=== PATIENT | female | born 1990 | race Caucasian/White ===

== ENCOUNTER 2017-01-27 23:30 | Inpatient (IN) ==
[2017-01-27] MEDS ORDERED: ONDANSETRON 4 MG/2 ML VIAL IV PRN (23:44)
[2017-01-27] MEDS ORDERED: ACETAMINOPHEN 325 MG TABLET PO PRN (23:44)
[2017-01-27] MEDS ORDERED: MEPERIDINE 50 MG/1 ML VIAL IV PRN (23:44)
[2017-01-27] MEDS ORDERED: CITRIC ACID/SODIUM CITRATE 30 ML UDCUP PO ONE (23:46)
[2017-01-27] MEDS ORDERED: FAMOTIDINE 20 MG/2 ML VIAL IV ONE (23:46)
[2017-01-27] MEDS: LACTATED RINGERS 1,000 ML IV SCH (23:55)
[2017-01-28] MEDS ORDERED: fentaNYL 2 MCG/ROPIV 0.2% EPID 150 ML EPIDURAL ONE (00:04)
[2017-01-28 00:15] LABS: Basophils # 0.1 10*3/uL (0.0-0.2); Basophils % 0.3 % (0.0-0.8); Eosinophils # 0.3 10*3/uL (0.0-0.87); Eosinophils % 1.4 % (0.00-10.9); Hematocrit 30.4 VOL% (35.7-47.0); Hemoglobin 9.7 GM/DL (12.0-16.0); Immature Granulocytes % 1.4 %; Immature Granulocytes Absolute 0.26 #; Lymphocytes # 2.6 10*3/uL (1.4-4.0); Mean Corpuscular HGB Conc 31.9 GM/DL (32-36); Mean Corpuscular Hemoglobin 25 PG (27-34); Mean Corpuscular Volume 78.4 FL (87-102); Mean Platelet Volume 13.4 FL (9.6-12.0); Monocytes # 1.1 10*3/uL (0.11-0.8); Neutrophils # 14.1 10*3/uL (1.4-7.4); Neutrophils % 76.9 % (38.7-73.9); Platelet Count 196 T/CUMM (130-400); Red Blood Count 3.88 MC/CUMM (3.8-5.5); Red Cell Distribution Width 16.1 % (9.3-17.3); White Blood Count 18.4 T/CUMM (4-12)
[2017-01-28] MEDS ORDERED: fentaNYL 2 MCG/ROPIV 0.2% EPID 150 ML EPIDURAL SCH (00:23)
[2017-01-28] MEDS: LACTATED RINGERS 1,000 ML IV SCH ×3 (00:29→07:45)
[2017-01-28 00:42] LABS: Alanine Aminotransferase 15 U/L (13-56); Albumin 2.5 G/DL (3.4-5.0); Alkaline Phosphatase 221 U/L (45-117); Aspartate Amino Transferase 23 U/L (0-37); Bilirubin,Total < 0.39 MG/DL (0.2-1.0); Blood Urea Nitrogen 10 MG/DL (7-18); Calcium 8.7 MG/DL (8.5-10.1); Glucose 73 MG/DL (74-106); Osmolality,Calculated 270.8 MOS/KG (273-304); Potassium 4.1 MMOL/L (3.5-5.1); Sodium 137 MMOL/L (136-145); Total Protein 6.3 G/DL (6.4-8.3)
[2017-01-28] MEDS: ePHEDrine 50 MG/ML AMP IV PRN ×2 (01:07→01:09)
[2017-01-28 01:54] LABS: Apearance,Urine CLEAR (Clear); Bilirubin,Urine Negative (Negative); Blood, Urine Negative (Negative); Glucose,Urine (UA) Negative (Negative); Ketones,Urine Negative (Negative); Nitrite,Urine Negative (Negative); Protein,Urine Negative; Urine Color Straw (Yellow); Urine Specific Gravity 1.004 (1.001-1.035); Urine Urobilinogen < 2.0 EU/DL (0.2-1.0)
[2017-01-28 02:25] LABS: Barbiturates Screen,Urine Negative (Negative); Benzodiazepines Screen,Urine Negative (Negative); Cannabinoid Screen,Urine Negative (Negative); Opiate Screen,Urine Negative (Negative); Phencyclidine Screen,Urine Negative (Negative)
[2017-01-28] MEDS ORDERED: OXYTOCIN/LR 20 UNIT/1,000 ML BAG IV SCH (06:00)
--- NOTE | 2017-01-28 09:08 | OB/GYN History & Physical ---
History of Present Illness Chief complaint: In active labor. History of present illness: Ms. Gonsalez is a 26 year old female 5 para 3 AB 1 living 3. Her FALLON is for an estimated gestational age of 38 and 6 7 weeks. The patient presents to the labor department in active labor. The risk and benefits has been thoroughly discussed with this patient and significant other, plan of care has been discussed with Dr. Antonio and all parties are in agreement with plan. The patient began her care late in her third trimester at the [place] [facility]. Her course was uneventful. She has had 3 previous vaginal deliveries and the largest infant weighing 8 pounds and 9 ounces. She reported no complications with any of those pregnancies. labs: She is a positive, rubella is immune, RPR is nonreactive, hepatitis B negative, HIV negative, GBS culture negative. Review of systems is negative with the exception of above. Home Medications Medication Instructions Recorded Confirmed Type Pedi Mv No.79/Ferrous Fumarate 1 tablet PO DAILY 11/04/15 01/27/17 History [Flintstones w/Iron Chew Tab] Allergies Allergy/AdvReac Type Severity Reaction Status Date / Time Penicillins AdvReac Intermediate RASH Verified 01/22/17 14:22 12 point system: reviewed and no additional remarkable complaints except as stated Medical,Surgical,& Family Hx - Medical History Medical History: noncontributory Musculoskeletal: No history of: Amputation Reproductive: History of: Sexually Transmitted Disorders (Chlamydia) No history of: Ectopic , Complication - Surgical History Surgical History: noncontributory Reproductive Surgeries: Patient denies;: Section - Family History Family History: Reports;: Family Diabetes (PGF), Family Hypertension (MGM), Additional Family History (mgm-deaf) Denies;: Family Anesthesia Reaction, Family Cancer, Family Heart Disease, Family Psychiatric Problems, Family Stroke - Social History Smoking Status: Current every day smoker Have you smoked in the last 12 months: Yes Frequency of Alcohol Use: None Type of Drug Use: None Marital Status: Single Lives With:: Significant Other Functional capacity: 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 ambulation 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 - Constitutional Vitals: Vital Signs Temp Pulse Resp BP 01/28/17 04:00 97.3 F L 76 18 115/64 01/28/17 01:00 97.6 F General appearance: mild distress - Antepartum / Post Antepartum Exam Cervix - Dilatation: 6 cm on admission Effacement: 70% Station: -2 Rupture: Intact Presentation: Vertex Heart Rate: 140 Breast: bilateral: normal Abdomen obstetrics: Present: bowel sounds normal Vagina: Present: normal moisture Uterus exam: Present: enlarged Anus/Rectum: Present: normal perianal skin - Respiratory Respiratory exam: Present: clear to auscultation bilaterally - Cardiovascular Cardiovascular exam: Present: regular rate and rhythm - GI/Abdominal GI/Abdominal exam: Present: normal bowel sounds, soft - Extremities Exam Extremities exam: Present: normal inspection - Neurological Exam Neurological exam: Present: alert, oriented X3 - Psychiatric Psychiatric exam: Present: normal affect, normal mood - Skin Skin exam: Present: normal color, warm Assessment and Plan (1) Active labor at term Status: Acute Assessment and plan: Admit IV fluids IV Pitocin per protocol if indicated Artificial rupture membranes if appropriate Epidural anesthesia if desired Anticipate Current Visit: Yes Results - Labs CBC & BMP: 01/27/17 23:57 01/27/17 23:57
[2017-01-28] MEDS ORDERED: IBUPROFEN 800 MG TABLET PO PRN (11:40)
--- NOTE | 2017-01-28 12:19 | Anesthesia Post-Op ---
Anesthesia Post OP - Post Ansesthetic Evaluation Patient seen in post op: Yes Resp: within normal limits CV: within normal limits Mental: within normal limits Temp: within normal limits [id number]: within normal limits Nausea and Vomiting: within normal limits Pain: within normal limits
[2017-01-28] MEDS ORDERED: ACETAMINOPHEN/CODEINE 300-30 MG TABLET PO PRN (16:08)
[2017-01-28] MEDS ORDERED: MEASLES/MUMPS/RUBELLA VACCINE 0.5 ML VIAL SUBCUT ONE (16:16)
[2017-01-28] MEDS ORDERED: BENZOCAINE 20%/MENTHOL 0.5% SPRAY 56 GM CAN TOP PRN (16:16)
[2017-01-28] MEDS ORDERED: RHO(D) IMMUNE GLOBULIN 300 MCG SYRINGE IM ONE (16:16)
[2017-01-28] MEDS ORDERED: LANOLIN 50% CREAM 0.3 OZ TUBE TOP PRN (16:16)
[2017-01-28] MEDS ORDERED: HYDROCORTISONE 2.5% RECTAL CREAM 30 GM TUBE TOP PRN (16:16)
[2017-01-28] MEDS ORDERED: WITCH HAZEL PADS 100/JAR TOP PRN (16:16)
[2017-01-28] MEDS ORDERED: ONDANSETRON 4 MG/2 ML VIAL IV PRN (16:16)
[2017-01-28] MEDS ORDERED: BISACODYL 10 MG SUPP RECTAL PRN (16:16)
[2017-01-28] MEDS ORDERED: DIPH/TET/ACEL PERT BOOSTER VACCINE 0.5 ML VIAL IM ONE (16:16)
--- NOTE | 2017-01-28 16:36 | Event Note ---
HPI: Ms. Gonsalez presented to the labor department in active labor. The risk and benefits were thoroughly discussed with the patient and significant other, plan of care discussed with Dr. Antonio and all parties were in agreement plan. STAGE I: The patient was admitted she received IV fluids and IV Pitocin per protocol. She also had spontaneous rupture membranes with clear fluid noted. She progressed in labor with a CAT 1 tracing. She did receive an epidural for pain control. She had an uneventful course of labor. STAGE 2: The patient was complete and complaining of pressure and desire to push. She pushed for approximately 10 minutes after which time the infant's head was delivered. The mouth and nose was suctioned on the perineum. The remainder of the infant was delivered at 0933. A viable female was noted with a terminal meconium stool. weight was 7 pounds and 14 oz. Apgars were 7 at 1 min and 8 at 5 min. STAGE 3: A spontaneous delivery of a [place]bin placenta with a three-vessel cord noted. Placenta was further examined appeared to be grossly with calcifications noted. The placenta was sent to pathology due to late care of the mother and history of drug use. The vagina and cervix was inspected with no tears or lacerations noted. Estimated blood loss was approximately 100 cc. At the time of dictation mother and baby are both in stable condition.
[2017-01-28] MEDS: oxyCODONE/ACETAMINOPHEN 5-325 MG TABLET PO PRN (18:19)
[2017-01-28] MEDS ORDERED: DOCUSATE SODIUM 100 MG CAPSULE PO SCH (21:00)
[2017-01-28] MEDS ORDERED: FERROUS SULFATE 325 MG TABLET PO SCH (21:00)
[2017-01-28] MEDS: IBUPROFEN 800 MG TABLET PO PRN (23:40)
[2017-01-28] MEDS ORDERED: MAGNESIUM HYDROXIDE SUSP 30 ML UDCUP PO PRN (23:44)
[2017-01-29] MEDS: oxyCODONE/ACETAMINOPHEN 5-325 MG TABLET PO PRN ×3 (03:50→23:18)
[2017-01-29 05:42] LABS: Basophils # 0.1 10*3/uL (0.0-0.2); Basophils % 0.4 % (0.0-0.8); Eosinophils # 0.4 10*3/uL (0.0-0.87); Eosinophils % 2.7 % (0.00-10.9); Hematocrit 28.4 VOL% (35.7-47.0); Hemoglobin 8.7 GM/DL (12.0-16.0); Immature Granulocytes Absolute 0.31 #; Lymphocytes # 3.3 10*3/uL (1.4-4.0); Lymphocytes % 21.5 % (21.3-54.2); Mean Corpuscular HGB Conc 30.6 GM/DL (32-36); Mean Corpuscular Hemoglobin 25 PG (27-34); Mean Platelet Volume 13.1 FL (9.6-12.0); Monocytes # 0.9 10*3/uL (0.11-0.8); Monocytes % 6.1 % (1.7-12.7); Neutrophils # 10.3 10*3/uL (1.4-7.4); Neutrophils % 67.3 % (38.7-73.9); Platelet Count 153 T/CUMM (130-400); Red Blood Count 3.55 MC/CUMM (3.8-5.5); Red Cell Distribution Width 16.2 % (9.3-17.3); White Blood Count 15.4 T/CUMM (4-12)
[2017-01-29] MEDS: DOCUSATE SODIUM 100 MG CAPSULE PO SCH ×2 (08:10→21:04)
[2017-01-29] MEDS: FERROUS SULFATE 325 MG TABLET PO SCH ×2 (08:10→21:04)
--- NOTE | 2017-01-29 09:37 | OB/GYN Progress Note ---
Assessment and Plan (1) Active labor at term Status: Acute Assessment and plan: Admit IV fluids IV Pitocin per protocol if indicated Artificial rupture membranes if appropriate Epidural anesthesia if desired Anticipate Current Visit: Yes (2) Vaginal delivery Status: Acute Assessment and plan: Initiate routine orders. 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 Bonding well with . 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 Vitals: Vital Signs Temp Pulse Resp BP Pulse Ox 01/29/17 07:16 97.6 F 80 20 113/61 97 01/29/17 05:00 17 01/29/17 04:00 97.1 F L 94 H 19 128/83 99 01/29/17 00:00 97.1 F L 73 18 128/73 99 01/28/17 20:00 98.3 F 86 19 125/73 97 01/28/17 15:43 97.5 F L 98 H 20 126/75 98 01/28/17 14:15 100 H 18 133/67 99 01/28/17 13:15 109 H 18 133/67 98 01/28/17 12:15 96 H 18 131/90 99 01/28/17 11:45 78 18 132/81 98 01/28/17 11:15 97.4 F L 84 18 111/70 98 General appearance: no acute distress - Antepartum / Post Post Exam Breast: bilateral: normal Abdomen obstetrics: Present: bowel sounds normal Vagina: Present: normal moisture, discharge (Light lochia rubra) Uterus exam: Present: enlarged (Fundus firm and midline) Anus/Rectum: Present: normal perianal skin - Respiratory Respiratory exam: Present: clear to auscultation bilaterally - Cardiovascular Cardiovascular exam: Present: regular rate and rhythm - GI/Abdominal GI/Abdominal exam: Present: normal bowel sounds, soft - Extremities Exam Extremities exam: Present: normal inspection - Neurological Exam Neurological exam: Present: alert, oriented X3 - Psychiatric Psychiatric exam: Present: normal affect, normal mood - Skin Skin exam: Present: normal color, warm Results - Labs CBC & BMP: 01/29/17 05:31 01/27/17 23:57
--- NOTE | 2017-01-29 11:21 | Pathology Report from [facility] ---
[facility] ACCESSION # : [id number] PATIENT NAME : Margarito Gonsalez I ORDERING DR : RAUL COOK MD CLINICAL HX: IUP @ 38.5 wks, late care @ 36 wks, HX of drug use POST-OP DX: Same SPECIMEN INFO: Placenta GROSS DESCRIPTION: Received fresh labeled DUNG GONSALEZ is a 792 gm placenta measuring 22.5 x 19.5 x 2.2 cm. The membranes are pink faust and translucent. The umbilical cord measures 41.0 cm, contains three vessels and is centrally inserted. The surface is blue monterroso and intact. The maternal surface is moderately disrupted. No abnormalities are appreciated upon sectioning. Sections submitted A- membranes and cord, B- and maternal surfaces. DIAGNOSIS FOR MARGARITO GONSALEZ: PLACENTA, MEMBRANES, UMBILICAL CORD: Focal placental infarction, mild intervillous blood. Tri-vessel umbilical cord. Membranes with acute chorioamnionitis. COLLECTED DATE: 01/28/2017 [facility] REPORT DATE: 01/29/2017 ELECTRONICALLY SIGNED BY: Ayleen Crump M.D. 01/29/2017 - 10:10:51 KE
[2017-01-29] MEDS: IBUPROFEN 800 MG TABLET PO PRN (22:17)
[2017-01-30 07:44] VITALS: BP 140/89
[2017-01-30] MEDS: oxyCODONE/ACETAMINOPHEN 5-325 MG TABLET PO PRN (08:28)
[2017-01-30] MEDS: DOCUSATE SODIUM 100 MG CAPSULE PO SCH (08:29)
[2017-01-30] MEDS: FERROUS SULFATE 325 MG TABLET PO SCH (08:29)
--- NOTE | 2017-01-30 10:04 | Discharge Summary ---
Hospital Course - Hospital Course Hospital Course: Ms. Gonsalez presented to the labor department for elective induction of labor due to term . She subsequently delivered a viable with no complications. She is followed a normal course and she has done well. She is bonding well with her infant. Her bleeding is minimal with no odor. Her perineum is intact. Her vital signs and lab values are stable. Her bowel sounds are positive and she has had a normal bowel movement. Contraception options has been discussed with this patient and she desires a bilateral tubal ligation. The patient was scheduled for her tubal ligation in our office. She will be discharged home prescriptions for pain and a follow-up appointment in our office. Diagnosis - Discharge Diagnosis (1) Active labor at term Status: Acute (2) Vaginal delivery Status: Acute Specialty Discharge - Follow Up or Referrals Follow up with: Gaudencio Antonio MD [Physician] - 1 Month Discharge Plan - Discharge Data Disposition: Disch To Home/Self Care Condition at Discharge: Stable Discharge Diet: advance to your usual diet, regular diet Activity: resume usual activities as tolerated Hygiene: no restrictions Weight Bearing at Discharge: weight bear as tolerated Driving: no restrictions Contact your physician if you experience:: fever over 101, pain uncontrolled by pain medications - Discharge Medications New Acetamin/Codeine 300-30 Tab [Tylenol/Codeine #3] 2 tablet PO Q4H PRN #30 tablet PRN Reason: Pain Mild (1-3) Ferrous Sulfate Tab [Feosol Original Tab] 325 mg PO BID #60 tablet Ibuprofen Tab [Motrin Tab] 800 mg PO Q6H PRN #30 tablet PRN Reason: Pain Moderate (4-7) No Action Pedi Mv No.79/Ferrous Fumarate [Flintstones w/Iron Chew Tab] 1 tablet PO DAILY - Follow Up or Referral - Forms/Instructions Exam - Constitutional Vitals: Period Temp Pulse Resp BP Sys/[place] Pulse Ox Last 24 Hr 97 F-97.8 F 71-93 17-19 110-156/71-92 97-100 General appearance: no acute distress - Head Head exam: Present: normal inspection - Respiratory Respiratory exam: Present: clear to auscultation bilaterally - Cardiovascular Cardiovascular exam: Present: regular rate and rhythm - GI/Abdominal GI/Abdominal exam: Present: normal bowel sounds, soft - Extremities Exam Extremities exam: Present: normal inspection - Neurological Exam Neurological exam: Present: alert, oriented X3 - Psychiatric Psychiatric exam: Present: normal affect, normal mood - Skin Skin exam: Present: normal color, warm DS: Provider Date of admission: 01/28/17 00:40 Primary care physician: . No PCP Attending physician on admission: Gaudencio Antonio MD Consults: 01/27/17 23:44 Consult to Anesthesiology [CONS] Routine Consulting Provider: Reason for Anesthesiology: Epidural Consult Comment: Epidural for pain managment 01/28/17 16:16 Consult to Single Resource Boss [CONS] Routine Consult Single Resource Boss: Breast Feeding Discharging clinician: Jenna Aleman CNM Expected date of discharge: 01/30/17
== END 2017-01-30 11:00 | disposition home or self-care (01) | DRG 560 ==
LOC: N.LDOUT 23:30 → N.LD 23:31 → N.OB 01-28 11:27
PROVIDERS: ADMIT Obstetrics & Gynecology; ATTEND Obstetrics & Gynecology

== ENCOUNTER 2018-03-17 04:30 | Inpatient (IN) ==
[2018-03-17] MEDS ORDERED: OXYTOCIN/LR 20 UNIT/1,000 ML BAG IV ONE ×3 (04:43→05:32)
[2018-03-17] MEDS ORDERED: MEPERIDINE 50 MG/1 ML VIAL IV PRN (04:45)
[2018-03-17] MEDS ORDERED: ONDANSETRON 4 MG/2 ML VIAL IV PRN ×2 (04:45→05:32)
[2018-03-17] MEDS ORDERED: ONDANSETRON 4 MG/2 ML VIAL ONE (04:50)
[2018-03-17] MEDS ORDERED: MEPERIDINE 50 MG/1 ML VIAL ONE (04:50)
[2018-03-17] MEDS ORDERED: LACTATED RINGERS 1,000 ML IV SCH ×2 (05:00→06:00)
[2018-03-17] MEDS ORDERED: METHYLERGONOVINE 0.2 MG/1 ML AMP ONE (05:03)
[2018-03-17 05:07] LABS: Cord Arterial Blood HCO3 23.6 MMOL/L
[2018-03-17 05:08] LABS: Cord Venous Blood HCO3 25.7 MMOL/L; Cord Venous Blood PCO2 41.1 MMHG; Cord Venous Blood PO2 29.6 MMHG
[2018-03-17] MEDS ORDERED: OXYTOCIN/LR 30 UNIT/1,000 ML BAG IV ONE (05:30)
[2018-03-17] MEDS ORDERED: RHO(D) IMMUNE GLOBULIN 300 MCG SYRINGE IM ONE (05:32)
[2018-03-17] MEDS ORDERED: SIMETHICONE CHEW 80 MG TABLET PO PRN (05:32)
[2018-03-17] MEDS ORDERED: ACETAMINOPHEN 325 MG TABLET PO PRN (05:32)
[2018-03-17] MEDS ORDERED: MAGNESIUM HYDROXIDE SUSP 30 ML UDCUP PO PRN (05:32)
[2018-03-17 05:34] LABS: Basophils % 0.4 % (0.0-0.8); Eosinophils # 0.1 10*3/uL (0.0-0.87); Eosinophils % 0.6 % (0.00-10.9); Hematocrit 26.1 VOL% (35.7-47.0); Hemoglobin 7.8 GM/DL (12.0-16.0); Immature Granulocytes % 1.2 %; Immature Granulocytes Absolute 0.13 #; Lymphocytes # 1.7 10*3/uL (1.4-4.0); Lymphocytes % 15.2 % (21.3-54.2); Mean Corpuscular HGB Conc 29.9 GM/DL (32-36); Mean Corpuscular Hemoglobin 23 PG (27-34); Mean Corpuscular Volume 78.4 FL (87-102); Monocytes # 0.8 10*3/uL (0.11-0.8); Monocytes % 6.9 % (1.7-12.7); NRBC # 0.03 10*3/uL; Neutrophils # 8.5 10*3/uL (1.4-7.4); Neutrophils % 75.7 % (38.7-73.9); Platelet Count 175 T/CUMM (130-400); Red Blood Count 3.33 MC/CUMM (3.8-5.5); Red Cell Distribution Width 16.7 % (9.3-17.3); White Blood Count 11.2 T/CUMM (4-12)
[2018-03-17 05:35] LABS: Apearance,Urine CLEAR (Clear); Bacteria,Urine Occasional /HPF (Few); Bilirubin,Urine Negative (Negative); Blood, Urine Negative (Negative); Glucose,Urine (UA) Negative (Negative); Ketones,Urine Negative (Negative); Mucus,Urine Occasional /LPF (Occasional); Nitrite,Urine Negative (Negative); Protein,Urine Negative; RBC,Urine <1 /HPF (0-4); Squamous Epithelial Cell,Urine Occasional /HPF (0-10); Urine Color Yellow (Yellow); Urine Specific Gravity 1.008 (1.001-1.035); WBC,Urine 3 /HPF (0-6)
[2018-03-17 05:39] LABS: Barbiturates Screen,Urine Negative (Negative); Benzodiazepines Screen,Urine Negative (Negative); Cannabinoid Screen,Urine Negative (Negative); Opiate Screen,Urine Negative (Negative); Phencyclidine Screen,Urine Negative (Negative)
[2018-03-17] MEDS ORDERED: miSOPROStol 200 MCG TABLET ONE (05:48)
[2018-03-17 05:51] LABS: Alanine Aminotransferase 26 U/L (13-56); Alkaline Phosphatase 210 U/L (45-117); Aspartate Amino Transferase 31 U/L (0-37); Bilirubin,Total < 0.39 MG/DL (0.2-1.0); Blood Urea Nitrogen 9 MG/DL (7-18); Calcium 8.1 MG/DL (8.5-10.1); Glucose 82 MG/DL (74-106); Osmolality,Calculated 272.7 MOS/KG (273-304); Potassium 3.8 MMOL/L (3.5-5.1); Sodium 138 MMOL/L (136-145); Total Protein 5.8 G/DL (6.4-8.3)
[2018-03-17] MEDS ORDERED: miSOPROStol 200 MCG TABLET RECTAL ONE (06:30)
[2018-03-17 06:38] LABS: Hypochromasia 1+; Microcytosis Slight; Platelet Estimate Adequate
[2018-03-17] MEDS ORDERED: CARBOPROST TROMETHAMINE 250 MCG/ML AMP IM ONE (06:59)
[2018-03-17] MEDS ORDERED: SODIUM CHLORIDE 0.9% 1,000 ML IV PRN (07:03)
[2018-03-17] MEDS: CLINDAMYCIN INJ 900 MG in PREMIX 1 EACH IV SCH ×2 (07:31→15:02)
[2018-03-17] MEDS ORDERED: INFLUENZA VIRUS VACCINE 0.5 ML SYRINGE IM ONE (09:00)
[2018-03-17] MEDS: IBUPROFEN 800 MG TABLET PO PRN (09:14)
[2018-03-17] MEDS: DOCUSATE SODIUM 100 MG CAPSULE PO SCH ×2 (09:23→21:02)
[2018-03-17 13:53] LABS: Basophils % 0.2 % (0.0-0.8); Eosinophils % 0.1 % (0.00-10.9); Hematocrit 31.5 VOL% (35.7-47.0); Immature Granulocytes % 1.3 %; Immature Granulocytes Absolute 0.22 #; Lymphocytes # 1.2 10*3/uL (1.4-4.0); Lymphocytes % 7.3 % (21.3-54.2); Mean Corpuscular HGB Conc 31.7 GM/DL (32-36); Mean Corpuscular Hemoglobin 25 PG (27-34); Mean Corpuscular Volume 79.3 FL (87-102); Mean Platelet Volume 13.8 FL (9.6-12.0); Monocytes # 1.1 10*3/uL (0.11-0.8); Monocytes % 6.6 % (1.7-12.7); NRBC # 0.04 10*3/uL; Neutrophils % 84.5 % (38.7-73.9); Platelet Count 178 T/CUMM (130-400); Red Blood Count 3.97 MC/CUMM (3.8-5.5); Red Cell Distribution Width 16.6 % (9.3-17.3); White Blood Count 16.6 T/CUMM (4-12)
[2018-03-17] MEDS ORDERED: FERROUS SULFATE 325 MG TABLET PO SCH (15:00)
[2018-03-17] MEDS ORDERED: ALUMINUM/MAGNES/SIMETH MAX STR 30 ML UDCUP PO PRN (21:00)
[2018-03-17] MEDS: FERROUS SULFATE 325 MG TABLET PO SCH (21:03)
[2018-03-18] MEDS ORDERED: BENZOCAINE/MENTHOL LOZENGE 18/BOX PO PRN (02:03)
[2018-03-18] MEDS: MULTIVITAMIN (PRENATAL) TABLET PO SCH (08:42)
[2018-03-18] MEDS: FERROUS SULFATE 325 MG TABLET PO SCH ×3 (08:43→20:09)
[2018-03-18] MEDS: DOCUSATE SODIUM 100 MG CAPSULE PO SCH ×3 (08:43→20:09)
[2018-03-18] MEDS: IBUPROFEN 800 MG TABLET PO PRN (19:26)
[2018-03-18] MEDS ORDERED: WITCH HAZEL PADS 100/JAR TOP PRN (22:51)
[2018-03-18] MEDS ORDERED: HYDROCORTISONE 2.5% RECTAL CREAM 30 GM TUBE TOP PRN (22:53)
[2018-03-18] MEDS ORDERED: diphenhydrAMINE CAP 25 MG CAPSULE PO PRN (23:08)
[2018-03-19] MEDS: IBUPROFEN 800 MG TABLET PO PRN (07:35)
[2018-03-19 07:52] VITALS: BP 147/100
[2018-03-19] MEDS: FERROUS SULFATE 325 MG TABLET PO SCH (08:35)
[2018-03-19] MEDS: DOCUSATE SODIUM 100 MG CAPSULE PO SCH (08:36)
[2018-03-19] MEDS: MULTIVITAMIN (PRENATAL) TABLET PO SCH (08:36)
== END 2018-03-19 10:55 | disposition home or self-care (01) | DRG 807 ==
LOC: N.LDOUT 04:30 → N.LD 04:33 → N.OB 11:10
PROVIDERS: ADMIT Obstetrics & Gynecology; ATTEND Obstetrics & Gynecology